=== PATIENT | female | born 1990 | race African-American/Black ===

== ENCOUNTER 2016-06-05 12:16 | Emergency (ER) | payer MEDICAID ==
--- NOTE | 2016-06-05 12:54 | ER Document Report ---
ED Medical Screen (RME) - General Stated Complaint: CHEST PAIN Mode of Arrival: Ambulatory Information source: Patient Notes: She presents emergency department with complaints of cough and hurts when she coughs. Also complains of back pain and dizziness. Patient reports she is to December 05 G43. Symptoms started 2 days ago. She reports she sometimes short of breath. Denies history of DVTs PEs. I have greeted and performed a rapid initial assessment of this patient. A comprehensive ED assessment and evaluation of the patient, analysis of test results and completion of the medical decision making process will be conducted by additional ED providers. TRAVEL OUTSIDE OF THE [place] IN LAST 30 DAYS: No Physical Exam - Vital signs Vitals: Temp Pulse Resp BP Pulse Ox 98.5 F 86 14 128/71 H 100 06/05/16 12:22 06/05/16 12:22 06/05/16 12:06/05/16 12:22 06/05/16 12:22 Course - Vital Signs Vital signs: Temp Pulse Resp BP Pulse Ox 98.5 F 86 14 128/71 H 100 06/05/16 12:22 06/05/16 12:22 06/05/16 12:22 06/05/16 12:22 06/05/16 12:22
--- NOTE | 2016-06-05 14:39 | ER Document Report ---
ED General - General Chief Complaint: Headache Stated Complaint: CHEST PAIN Time seen by provider: 14:34 Mode of Arrival: Ambulatory Information source: Patient Notes: 26-year-old female with a day history of headache which she localizes to the bilateral frontal region associated with nonproductive cough dizziness when she first wakes up nasal congestion and occasional blood in her nose and sharp chest and upper back pain with coughing or deep breathing. She denies history blood clots says she is with a due date is December 05. Ports no problems with at this point but has not seen [facility]ING SPECIALIST yet. She has not noted any abdominal pain vaginal bleeding or discharge dysuria pain numbness weakness or swelling to extremities. Physical Exam: General: Alert, appears well. HEENT: Normocephalic. Atraumatic. PERRLA. Extraocular movements intact. Discs sharp Tympanic members are canals clear Oropharynx clear. Tender to palpation over frontal sinuses bilaterally Neck: Supple. Non-tender. No JVD no adenopathy no nuchal rigidity Respiratory: No respiratory distress. Clear and equal breath sounds bilaterally. Cardiovascular: Regular rate and rhythm. Abdominal: Normal Inspection. Soft, non-tender. No distension. Normal Bowel Sounds. Back: Non-tender. No deformity or step off. Extremities: Moves all four extremities. Upper extremities: Normal inspection. Non-tender. Normal color. Normal ROM. Normal temperature. Lower extremities: Normal inspection. Non-tender. No edema. Normal color. Normal ROM. Normal temperature. No Homans sign bilaterally Neurological: Cranial nerves III-XII grossly intact bilaterally. Strength 5/5 throughout. Sensation intact to light touch. Normal cognition. AAOx4. Normal speech. Cerebellar function intact by finger to nose test bilaterally Psychological: Normal affect. Normal Mood. Skin: Warm. Dry. Normal color. TRAVEL OUTSIDE OF THE [place] IN LAST 30 DAYS: No - Related Data Allergies/Adverse Reactions: No Known Drug Allergies Allergy (Verified 06/05/16 12:59) Past Medical History - General Information source: Patient - Social History Smoking Status: Never Smoker Family History: Other - No family history of blood clots - Past Medical History Cardiac Medical History: Reports: None Review of Systems - Review of Systems Constitutional: denies: Chills, Fever EENT: Nose congestion, Nose discharge, Sinus pressure, Sinus discharge. denies : Ear pain Cardiovascular: See HPI Respiratory: See HPI Gastrointestinal: denies: Nausea, Vomiting Genitourinary: denies: Burning Female Genitourinary: Musculoskeletal: Back pain Hematologic/Lymphatic: denies: Swollen glands Neurological/Psychological: denies: Weakness, Numbness Physical Exam - Vital signs Vitals: Temp Pulse Resp BP Pulse Ox 98.5 F 86 14 128/71 H 100 06/05/16 12:22 06/05/16 12:22 06/05/16 12:22 06/05/16 12:22 06/05/16 12:22 Course - Re-evaluation Re-evalutation: 06/05/16 14:38 Patient has exam consistent with sinusitis. He has been taking Tylenol without improvement in her symptoms reports being limited another medication she can use her symptomatically treatments that she is . Given the duration of her symptoms and her be reasonable try antibiotics and also cancer that Benadryl and [id number] nasal spray would be safe to use also provided with the number for [facility] for outpatient follow-up - Vital Signs Vital signs: Temp Pulse Resp BP Pulse Ox 98.5 F 86 14 128/71 H 100 06/05/16 12:22 06/05/16 12:22 06/05/16 12:22 06/05/16 12:22 06/05/16 12:22 Discharge - Discharge Clinical Impression: Sinusitis Qualifiers: Sinusitis location: unspecified location Chronicity: acute Recurrence: not specified as recurrent Qualified Code(s): J01.90 - Acute sinusitis, unspecified Condition: Stable Disposition: HOME, SELF-CARE Additional Instructions: You are . care is best started as early in as possible. If you're unsure about continuing this , you should discuss this with your physician or with [facility] at [facility]. You should take only medications approved by your physician. Acetaminophen can safely be taken for minor pains. As a rule, medication for chronic conditions such as asthma or seizures can safely be continued. You should discuss with the physician every medicine you take. Any regular exercise program can be continued. Talk to your physician, however, before engaging in competitive or demanding sports. Alcohol, smoking, and "street drugs" are dangerous to your baby. Cocaine is especially dangerous. Don't use any illicit drugs! Sinusitis You have sinusitis, an infection of the sinus cavities of the face. The sinuses are air-filled chambers which open into the inside of the nose. Bacteria and pus fill a sinus, causing pain, drainage, and fever. Sinusitis is treated with antibiotics. Often, expectorants (to thin the sinus mucous) or decongestants (to reduce swelling) are prescribed as well. Healing requires seven to 10 days. Avoid chemical fumes, pollens, dusts, and smoke (especially cigarette smoke ). Keep the air humidified in your bedroom and work area and take plenty of liquids by mouth. This condition can be serious if the infection spreads. If your symptoms worsen, or if you develop severe headache, high fever, stiff neck, or a rash, you must call the doctor or return for re-evaluation. Prescriptions: Amoxicillin Trihydrate [Amoxil 500 mg Capsule] 500 mg PO TID #30 cap Referrals: REINALDO BURRELL MD [ACTIVE STAFF] - Follow up as needed
[2016-06-05 15:32] VITALS: BP 119/77
== END 2016-06-05 15:26 | disposition home or self-care (01) ==
LOC: ER 12:16
DX: O99.512 Diseases of the respiratory system complicating pregnancy, second trimester (principal); J01.90 Acute sinusitis, unspecified; J34.89 Other specified disorders of nose and nasal sinuses; O26.892 Other specified pregnancy related conditions, second trimester; R51 Headache; R05 Cough; R42 Dizziness and giddiness; R09.81 Nasal congestion; R07.89 Other chest pain; R06.02 Shortness of breath; O99.89 Other specified diseases and conditions complicating pregnancy, childbirth and the puerperium; M54.89 Other dorsalgia; Z3A.14 14 weeks gestation of pregnancy
CPT/HCPCS: 99283

== ENCOUNTER 2016-06-19 19:48 | Emergency (ER) | payer MEDICAID ==
[2016-06-19] MEDS ORDERED: IBUPROFEN 800 MG TABLET PO ONE (19:53)
--- NOTE | 2016-06-19 19:53 | ER Document Report ---
ED Medical Screen (RME) - General Stated Complaint: BACK/LEG PAIN Notes: onset: 2 days denies trauma, accident denies working with heavy lifting sudden onset, low back pain with right sciatica denies urinary/stool incontinence, saddle anesthesia. Patient able to bear weight and ambulate but with limp. for pain: APAP and heating pad, with relief but no longer then an hour I have greeted and performed a rapid initial assessment of this patient. A comprehensive ED assessment and evaluation of the patient, analysis of test results and completion of the medical decision making process will be conducted by additional ED providers. TRAVEL OUTSIDE OF THE [place] IN LAST 30 DAYS: No - Related Data Allergies/Adverse Reactions: No Known Drug Allergies Allergy (Verified 06/05/16 12:59)
--- NOTE | 2016-06-19 20:52 | ER Document Report ---
ED General - General Chief Complaint: Back Pain Stated Complaint: BACK/LEG PAIN Time seen by provider: 20:50 Notes: Patient is a 26-year-old female, at 15 weeks gestation by first trimester ultrasound, that comes emergency department for chief complaint of pain in her right mid to lower back that started 2 days ago. Patient states she awoke with the pain, states that she has not been able to get comfortable since began, states she is sleeping poorly and tossing and turning. She states that when she walks she feels pain in the area and occasionally she has pains in both the back and front of her right leg. She denies any swelling of the right leg, she states pain is intermittent and inconsistent. Patient denies any injuries, dysuria, fever, abdominal pain, vaginal bleeding or discharge. Patient is on vitamins, denies any other medications or medical history. TRAVEL OUTSIDE OF THE [place] IN LAST 30 DAYS: No - Related Data Allergies/Adverse Reactions: No Known Drug Allergies Allergy (Verified 06/05/16 12:59) Past Medical History - General Information source: Patient - Social History Smoking Status: Never Smoker Frequency of alcohol use: None Drug Abuse: None Lives with: Family Family History: Reviewed & Not Pertinent Patient has suicidal ideation: No Patient has homicidal ideation: No - Medical History Medical History: Negative Renal/ Medical History: Denies: Hx Peritoneal Dialysis Surgical Hx: Negative - Immunizations Immunizations up to date: Yes Hx Diphtheria, Pertussis, Tetanus Vaccination: Yes Review of Systems - Review of Systems Constitutional: No symptoms reported EENT: No symptoms reported Cardiovascular: No symptoms reported Respiratory: No symptoms reported Gastrointestinal: No symptoms reported Genitourinary: See HPI Female Genitourinary: See HPI Musculoskeletal: See HPI Skin: No symptoms reported Hematologic/Lymphatic: No symptoms reported Neurological/Psychological: No symptoms reported Physical Exam - Vital signs Vitals: Temp Pulse Resp BP Pulse Ox 98.1 F 110 H 18 131/72 H 99 06/19/16 19:52 06/19/16 19:52 06/19/16 19:52 06/19/16 19:52 06/19/16 19:52 Interpretation: Normal - General General appearance: Appears well, Alert In distress: None - HEENT Head: Normocephalic, Atraumatic Eyes: Normal Conjunctiva: Normal Extraocular movements intact: Yes Eyelashes: Normal Pupils: PERRL Mouth/Lips: Normal Mucous membranes: Normal Pharynx: Normal Neck: Normal - Respiratory Respiratory status: No respiratory distress Chest status: Nontender Breath sounds: Normal. No: Decreased air movement Chest palpation: Normal - Cardiovascular Rhythm: Regular. No: Tachycardia - no tachycardia on my exam Heart sounds: Normal auscultation, S1 appreciated, S2 appreciated Murmur: No - Abdominal Inspection: Normal Distension: No distension Bowel sounds: Normal Tenderness: Nontender Organomegaly: No organomegaly - Back Back: Tender - There is tenderness in the lumbar paraspinal muscles on the right side, no saddle anesthesia, no midline tenderness, no CVA tenderness, normal upper and lower extremity strength and range of motion, normal distal neurovascular exam - Extremities General upper extremity: Normal inspection, Nontender, Normal ROM, Normal strength General lower extremity: Normal inspection, Nontender, Normal ROM, Normal strength - Neurological Neuro grossly intact: Yes Cognition: Normal Orientation: AAOx4 Mirta Coma Scale Eye Opening: Spontaneous [place] Coma Scale Verbal: Oriented Mir[place] Coma Scale Motor: Obeys Commands Mirta Coma Scale Total: 15 Speech: Normal Cranial nerves: Normal Cerebellar coordination: Normal Motor strength normal: LUE, RUE, LLE, RLE Additional motor exam normals: Equal foxer Sensory: Normal - Psychological Associated symptoms: Normal affect, Normal mood - Skin Skin Temperature: Warm Skin Moisture: Dry Skin Color: Normal Course - Re-evaluation Re-evalutation: Patient smiling, well-appearing, alert, conversational, soft and benign abdomen , has tenderness over the right paralumbar muscles, patient with no other abnormalities on my examination. Urinalysis has more squamous epithelials and white blood cells, trace leukocyte esterase, no nitrites, no bacteria. Culture placed. Do not suspect urine as the source of her symptoms. Suspect musculoskeletal based on exam and benign symptoms. Patient not tachycardic on my exam, vitals rechecked and in normal ranges. Discussed with patient, patient will follow up with [facility], patient requesting something to help sleep and muscles, patient will be given a small amount of Flexeril (patient asking about category in , this is a B), discussed return precautions including fever, vomiting, worsening pain, abdominal pain, etc. Patient states understanding and agreement. - Vital Signs Vital signs: Temp Pulse Resp BP Pulse Ox 98.8 F 94 18 119/74 99 06/19/16 21:33 06/19/16 21:33 06/19/16 21:33 06/19/16 21:33 06/19/16 21:33 - Laboratory Laboratory results interpreted by me: 06/19/16 20:50 Urine Protein 30 H Ur Leukocyte Esterase TRACE H Discharge - Discharge Clinical Impression: Flank pain Condition: Stable Disposition: HOME, SELF-CARE Additional Instructions: Examination and symptoms suggesting muscular source of the problem, urine does not suggest an infection as the source of the problem. Apply heat to the area, do gentle stretches, take Tylenol, take the Flexeril if needed (category B). Follow-up with your provider for additional management. Return to emergency department for any concerning or worsening symptoms including fever, vomiting, severe pain, etc. Prescriptions: Cyclobenzaprine HCl [Flexeril 5 mg Tablet] 5 mg PO TID #15 tablet
[2016-06-19 21:12] LABS: APPEARANCE,URINE CLOUDY; BILIRUBIN,URINE NEGATIVE (NEGATIVE); GLUCOSE, URINE NEGATIVE (NEGATIVE); KETONES,URINE NEGATIVE (NEGATIVE); LEUKOCYTE ESTERASE,URINE TRACE (NEGATIVE); NITRITE,URINE NEGATIVE (NEGATIVE); PROTEIN,URINE 30 mg/dL (NEGATIVE); URINE SPECIFIC GRAVITY 1.014; UROBILINOGEN,URINE NEGATIVE mg/dL (<2.0)
[2016-06-19 21:34] VITALS: BP 119/74
== END 2016-06-19 21:33 | disposition home or self-care (01) ==
LOC: ER 19:48
DX: R10.9 Unspecified abdominal pain (principal); M54.9 Dorsalgia, unspecified; M79.606 Pain in leg, unspecified; Z3A.15 15 weeks gestation of pregnancy
CPT/HCPCS: 99283; 87086; 81001; J3490

== ENCOUNTER 2016-11-28 10:51 | Emergency (ER) | payer MEDICAID ==
[2016-11-28 10:57] VITALS: BP 124/80
[2016-11-28] MEDS ORDERED: PENICILLIN V POTASSIUM 500 MG TABLET PO ONE (11:44)
--- NOTE | 2016-11-28 11:45 | ER Document Report ---
HPI - HPI Patient complains to provider of: dental pain Onset: Other - 2 days Onset/Duration: Persistent Quality of pain: Achy Pain Level: 2 Context: Patient presents complaining of right lower jaw dental pain for the past 2 days. Patient denies any fever. Patient has been taking Tylenol without improvement of her pain symptoms. Patient is presently at 39 weeks . Associated Symptoms: Other - Dental pain. denies: Fever Exacerbated by: Denies Relieved by: Denies Similar symptoms previously: Yes Recently seen / treated by doctor: No - ROS ROS below otherwise negative: Yes - CONSTITUTIONAL Constitutional: DENIES: Fever - EENT Notes: Dental pain - GASTROINTESTINAL Gastrointestinal: DENIES: Nausea, Patient vomiting - REPRODUCTIVE Reproductive: REPORTS: : - MUSCULOSKELETAL Musculoskeletal: DENIES: Neck Pain - DERM Skin Color: Normal Skin Problems: None Past Medical History - General Information source: Patient - Social History Smoking Status: Never Smoker Frequency of alcohol use: None Drug Abuse: None Lives with: Family Family History: Reviewed & Not Pertinent - Medical History Medical History: Negative Renal/ Medical History: Denies: Hx Peritoneal Dialysis Surgical Hx: Negative - Immunizations Immunizations up to date: Yes Hx Diphtheria, Pertussis, Tetanus Vaccination: Yes Vertical Provider Document - CONSTITUTIONAL Agree With Documented VS: Yes Exam Limitations: No Limitations General Appearance: WD/WN, No Apparent Distress - INFECTION CONTROL TRAVEL OUTSIDE OF THE [place] IN LAST 30 DAYS: No - HEENT HEENT: Atraumatic, Normocephalic Mouth Diagram: 1 - dental caries, tenderness, no trismus - NECK Neck: Normal Inspection, Supple. negative: Lymphadenopathy-Left, Lymphadenopathy-Right - RESPIRATORY Respiratory: Breath Sounds Normal, No Respiratory Distress O2 Sat by Pulse Oximetry: 100 - CARDIOVASCULAR Cardiovascular: Regular Rate, Regular Rhythm - MUSCULOSKELETAL/EXTREMETIES Musculoskeletal/Extremeties: MAEW - NEURO Level of Consciousness: Awake, Alert, Appropriate - DERM Integumentary: Warm, Dry, No Rash Course - Vital Signs Vital signs: Temp Pulse Resp BP Pulse Ox 98.5 F 80 18 124/80 100 11/28/16 10:56 11/28/16 10:56 11/28/16 10:56 11/28/16 10:56 11/28/16 10:56 Discharge - Discharge Clinical Impression: Toothache Condition: Stable Disposition: HOME, SELF-CARE Instructions: Penicillin V K ([facility]), Toothache ([facility]), Acetaminophen, Dentist Additional Instructions: Return immediately for any new or worsening symptoms Followup with your primary care provider, call tomorrow to make a followup appointment Follow-up with a dental provider Prescriptions: Penicillin V Potassium [Penicillin Vk 500 mg Tablet] 500 mg PO BID #20 tablet Referrals: [facility] [Provider Group] - Follow up as needed
== END 2016-11-28 11:56 | disposition home or self-care (01) ==
LOC: ER 10:51
DX: K08.9 Disorder of teeth and supporting structures, unspecified (principal)
CPT/HCPCS: 99282; J3490

== ENCOUNTER 2016-12-10 19:17 | Outpatient (CLI) | payer MEDICAID ==
[2016-12-10 19:56] LABS: APPEARANCE,URINE CLEAR; BILIRUBIN,URINE NEGATIVE (NEGATIVE); GLUCOSE, URINE NEGATIVE (NEGATIVE); KETONES,URINE NEGATIVE (NEGATIVE); LEUKOCYTE ESTERASE,URINE NEGATIVE (NEGATIVE); NITRITE,URINE NEGATIVE (NEGATIVE); PROTEIN,URINE NEGATIVE (NEGATIVE); URINE SPECIFIC GRAVITY 1.024; UROBILINOGEN,URINE NEGATIVE mg/dL (<2.0)
[2016-12-10 20:09] LABS: URINE BARBITURATES SCREEN NEGATIVE; URINE METHADONE SCREEN NEGATIVE; URINE OPIATES LOW NEGATIVE; URINE PHENCYCLIDINE SCREEN NEGATIVE
[2016-12-10] MEDS ORDERED: HYDROXYZINE PAMOATE 50 MG CAPSULE ONE (21:24)
--- NOTE | 2016-12-10 21:33 | Non Stress Test Report ---
Non Stress Test Datetime Report Generated by CPN: 12/10/2016 21:32 DEMOGRAPHIC EGA NST: 40.5 INDICATION Indication for Study: Ordered by Provider MONITORING Monitor Explained: Monitor Explained; Test Explained; Patient Verbalized Understanding Time on Monitor: 12/10/2016 19:38 Time off Monitor: 12/10/2016 20:12 NST Duration: 34 NST INTERVENTIONS NST Interventions: None BABY A: [id number] BABY A Movement : Present Movement : Present Contraction Frequency : 4-9 FHR Baseline : 125 Accelerations : 15X15 Decelerations : None Variability : Moderate 6-25bpm NST Review: Meets Criteria for Reactive NST NST Review: Meets Criteria for Reactive NST NST Review and Verified By : Felipe Huertas RN NST Results: Reactive NST REPORT Report Trigger: Send Report
[2016-12-10] MEDS ORDERED: HYDROXYZINE PAMOATE 50 MG CAPSULE PO ONE (22:00)
== END 2016-12-10 21:31 | disposition home or self-care (01) ==
LOC: LC 19:17
PROVIDERS: ATTEND Specialist
PROC: 4A1HXCZ Monitoring of Products of Conception, Cardiac Rate, External Approach (ICD-10-PCS; principal; 2016-12-10)
DX: O47.1 False labor at or after 37 completed weeks of gestation (principal); O48.0 Post-term pregnancy; Z3A.40 40 weeks gestation of pregnancy
CPT/HCPCS: 59025; 81005; 80307; J3490

== ENCOUNTER 2016-12-11 00:33 | Inpatient (IN) | payer MEDICAID ==
[2016-12-11] MEDS ORDERED: PENICILLIN G POTASSIUM 5,000,000 UNIT in DEXTROSE 5%-WATER 100 ML IV ONE (02:38)
[2016-12-11] MEDS ORDERED: DEXTROSE 5%-LACTATED RINGERS 1,000 ML IV PRN (02:38)
[2016-12-11] MEDS ORDERED: MISOPROSTOL 0.2 MG TABLET ONE ×2 (02:48→08:40)
[2016-12-11] MEDS ORDERED: OXYTOCIN/NORMAL SALINE 20 UNIT/1,000 ML RTUINJ ONE ×3 (02:48→13:46)
[2016-12-11] MEDS ORDERED: PENICILLIN G-K 5 MILLION UNIT VIAL ONE ×3 (02:48→12:25)
[2016-12-11] MEDS ORDERED: LIDOCAINE 1% INJ-PF (10 MG/ML) 30 ML SDV ONE ×2 (02:48→11:56)
[2016-12-11 03:13] LABS: ABSOLUTE EOSINOPHILS # (AUTO) 0.1 10^3/uL (0.0-0.6); ABSOLUTE LYMPHOCYTES (AUTO) 1.7 10^3/uL (0.5-4.7); ABSOLUTE MONOCYTES (AUTO) 0.7 10^3/uL (0.1-1.4); ABSOLUTE NEUT (AUTO) 5.6 10^3/uL (1.7-8.2); BASOPHILS % (AUTO) 0.5 % (0-2); EOSINOPHILS % (AUTO) 0.7 % (0-6); HEMATOCRIT 29.9 % (36.0-47.0); HEMOGLOBIN 9.9 g/dL (12.0-15.5); HGB HCT DIFFERENCE -0.2; LYMPHOCYTES % (AUTO) 21.3 % (13-45); MEAN CORPUSCULAR HEMOGLOBIN 27.3 pg (27.0-33.4); MEAN CORPUSCULAR VOLUME 83 fl (80-97); MONOCYTES % (AUTO) 8.4 % (3-13); RED BLOOD COUNT 3.62 10^6/uL (3.72-5.28); SEGMENTED NEUTROPHILS % (AUTO) 69.1 % (42-78); WHITE BLOOD COUNT 8.1 10^3/uL (4.0-10.5)
[2016-12-11] MEDS ORDERED: RINGERS SOLUTION,LACTATED 1,000 ML IV PRN (03:21)
[2016-12-11] MEDS ORDERED: PENICILLIN G POTASSIUM 2,500,000 UNIT in DEXTROSE 5%-WATER 50 ML IV SCH (06:40)
--- NOTE | 2016-12-11 06:56 | L&D Progress Notes ---
PROGRESS NOTES Datetime Report Generated by CPN: 12/11/2016 06:55 PROGRESS NOTE Impression: Normal Progression of Labor Procedures: Artificial ROM Plan: Continue Present Management Informed Consent Obtained: Vaginal After Comment: plan epidural, cont gbs prophylaxis MEMBRANES Membranes: Ruptured Amniotic Fluid Color: Meconium, Heavy FETUS A FHR Category: Category I SIGNATURE SIGNATURE: [id number] SIGNATURE: [id number] Signature: with User ID: [email or web address]
[2016-12-11] MEDS ORDERED: EPHEDRINE SULFATE INJ 50 MG/1 ML AMPULE ONE (07:01)
[2016-12-11] MEDS ORDERED: FENTANYL/BUPIVACAINE/NS/PF 200 MCG/100 ML RTUINJ EPI ONE (07:01)
[2016-12-11] MEDS ORDERED: BUPIVACAINE HCL 0.25 % INJ/PF (2.5 MG/1 ML) 30 ML VIAL ONE (07:01)
[2016-12-11] MEDS ORDERED: ONDANSETRON HCL INJ/PF 4 MG/2 ML SDV ONE (08:11)
[2016-12-11] MEDS ORDERED: DEXAMETHASONE SOD PHOSPHATE INJ 4 MG/1 ML VIAL ONE (08:11)
[2016-12-11] MEDS ORDERED: SUCCINYLCHOLINE CHLORIDE INJ 200 MG/10 ML VIAL ONE (08:11)
--- NOTE | 2016-12-11 09:00 | L&D Progress Notes ---
PROGRESS NOTES Datetime Report Generated by CPN: 12/11/2016 09:00 PROGRESS NOTE Impression: Normal Progression of Labor Plan: Continue Present Management Informed Consent Obtained: Vaginal Delivery; Vaginal After ; Risks, Benefits and Alternatives Discussed Vital Signs : Reviewed Comment: 26 yo admitted for active labor EDC 12/06/16 EGA 40.6 c/s x1 with successful Positive GBS SROM 0641 heavy meconium prophylaxis x2 epidural in place pt on peanut ball start low dose pitocin anticipate FETUS A FHR - Baseline: 120 Monitoring: External US Variability: Moderate 6-25bpm Accelerations: 15X15 Decelerations: None FHR Category: Category I : 40.6 FETUS C SIGNATURE: [id number] Assignment: Reece Murphy DO Signature: with User ID: [email or web address] : with User ID: [email or web address]
[2016-12-11] MEDS ORDERED: PENICILLIN G-K 5 MILLION UNIT VIAL IV SCH (10:00)
[2016-12-11] MEDS ORDERED: CEFAZOLIN 2 GM/D5W RTU 2 GM/50 ML RTUPB IV ONE (13:30)
[2016-12-11] MEDS ORDERED: CITRIC ACID/SODIUM CITRATE ORAL SOLN 15 ML UDCUP ONE (13:30)
[2016-12-11] MEDS ORDERED: LIDOCAINE 2% INJ-PF (20 MG/ML) 10 ML AMPUL ONE (13:34)
[2016-12-11] MEDS ORDERED: FENTANYL CITRATE INJ/PF 100 MCG/2 ML AMPUL ONE (13:47)
[2016-12-11] MEDS ORDERED: MORPHINE SULFATE 10 MG/ML INJ ONE (13:47)
[2016-12-11] MEDS ORDERED: PROPOFOL INJ 200 MG/20 ML VIAL IV ONE (14:06)
[2016-12-11] MEDS ORDERED: OXYTOCIN/NORMAL SALINE 20 UNIT/1,000 ML RTUINJ INJ PRN (15:34)
[2016-12-11] MEDS ORDERED: OXYCODONE-ACETAMINOPHEN 5-325 MG TABLET PO PRN (16:00)
[2016-12-11] MEDS ORDERED: PROMETHAZINE HCL INJ 25 MG/1 ML VIAL IM PRN (16:00)
[2016-12-11] MEDS ORDERED: DIPH/PERTUSS(ACELL)/TETANUS VAC/PF 0.5 ML SYR (>=10YO) IM PRN (16:00)
[2016-12-11] MEDS ORDERED: HYDROMORPHONE HCL INJ/PF 2 MG/ML AMPULE IV PRN (16:00)
[2016-12-11] MEDS ORDERED: RINGERS SOLUTION,LACTATED 1,000 ML IV SCH (16:00)
[2016-12-11] MEDS ORDERED: ACETAMINOPHEN 325 MG TABLET PO PRN (16:00)
[2016-12-11] MEDS ORDERED: MEASLES,MUMPS&RUBELLA VACC/PF 0.5 ML VIAL SUBCUT PRN (16:00)
--- NOTE | 2016-12-11 16:20 | Admission Physical ---
Datetime Report Generated by CPN: 12/11/2016 16:20 CURRENT ADMISSION Hx Assessment: The History has been Reviewed and is Current Chief Complaint: Uterine Contractions Admit Plan: Initiate Labor Protocol; Initiate Protocol ALLERGIES Medication Allergies: No Medication Allergies: No Known Drug Allergies (12/11/2016) Medication Allergies: No Known Drug Allergies (11/28/2016) Latex: No Latex Allergies Food Allergies: N/A Environmental Allergies: N/A OBSTETRICAL HISTORY EDC: 12/05/2016 00:00 : 5 Para: 3 Term: 3 : 0 SAB: 0 IAB: 1 Ectopic: 0 Livin Cesareans: 1 VBACs: 2 Multiple Births: 0 Gestational Diabetes: No Rh Sensitization: No Incompetent Cervix: No KINSEY: No Infertility: No ART Treatment: No Uterine Anomaly: No IUGR: No Hx Previous C/S: Yes Macrosomia: No Hx Loss/Stillborn: No PIH: No Hx : No Placenta Previa/Abruption: No Depression/PP Depression: No PTL/PROM: No Post Hemorrhage: No Current Procedures: Ultrasound Obstetrical History Comments: G1--40w girl [id number] 11/2007 G2--37w C/S for breech girl 5lb4oz 05/2010 G3--40w girl 6lb4oz 12/2011 G4--IAB 2013 G5--current SEE RECORDS Alcohol: No Marijuana : No Cocaine: No Other Illicit Drugs: No Cigarettes: Never Smoker. 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 Heart Disease: No Hosp/Surgery: Yes Autoimmune Disorder: No Anesthetic Complications: No Kidney Disease: Yes Abnormal Pap Smear: No Neuro/Epilepsy: No Psychiatric Disorders: No Other Medical Diseases: No Hepatitis/Liver Disease: No Significant Family History: No Varicosities/Phlebitis: No Trauma/Violence : No Thyroid Dysfunction: No Medical History Comments: hx UTI wisdom teeth 2016 C/S 2011--spinal INFECTIOUS HISTORY Gonorrhea: No Genital Herpes: No Chlamydia: No Tuberculosis: No Syphilis: No Hepatitis: No HIV/AIDS Exposure: No Rash or Viral Illness: No HPV: No PHYSICAL EXAM General: Normal HEENT: Normal Neurologic: Normal Thyroid: Normal Heart: Normal Lungs: Normal Breast: Normal Back: Normal Abdomen: Normal Genitourinary Exam: Normal Extremities: Normal DTRs: Normal Pelvic Type: Adequate Physical Exam Comments: gbs+ efw 7 1/2 pounds MEMBRANES Membranes: Ruptured Amniotic Fluid Color: Meconium, Heavy FETUS A EGA: 40.6 Monitoring: External US FHR Category: Category I Admit Comment: IUP at 40.6 wks desires shira for (has had successful in past). If c/s needed, desires btl. Start gbs prophylaxis and epidural. PLANS FOR LABOR AND DELIVERY Labor and Delivery: None Pain Management: Epidural Feeding Preference: Both Benefit of Breast Feed Discussed: Yes Circumcision: Yes INFORMED CONSENT Informed Consent Obtained: Vaginal Delivery; Vaginal After ; Risks, Benefits and Alternatives Discussed Informed Consent Obtained: Vaginal After Signature: with User ID: [email or web address]
[2016-12-11] MEDS: DOCUSATE SODIUM 100 MG CAPSULE PO SCH (17:58)
[2016-12-11] MEDS ORDERED: IBUPROFEN 800 MG TABLET PO SCH (18:00)
[2016-12-11] MEDS: KETOROLAC TROMETHAMINE INJ/PF 30 MG/1 ML SDV IV SCH (22:54)
[2016-12-12] MEDS: OXYCODONE-ACETAMINOPHEN 5-325 MG TABLET PO PRN ×3 (04:50→17:03)
[2016-12-12 05:38] LABS: HEMATOCRIT 25.5 % (36.0-47.0); HEMOGLOBIN 8.1 g/dL (12.0-15.5); HGB HCT DIFFERENCE -1.2; MEAN CORPUSCULAR HGB CONC 31.9 g/dL (32.0-36.0); MEAN CORPUSCULAR VOLUME 85 fl (80-97); RED BLOOD COUNT 3.01 10^6/uL (3.72-5.28); RED CELL DISTRIBUTION WIDTH 17.2 % (11.5-14.0); WHITE BLOOD COUNT 12.7 10^3/uL (4.0-10.5)
[2016-12-12] MEDS: KETOROLAC TROMETHAMINE INJ/PF 30 MG/1 ML SDV IV SCH ×2 (06:51→13:19)
[2016-12-12] MEDS: PRENATAL VITAMIN W-O CA NO5/FE FUMARATE/FA CAPSULE PO SCH (09:52)
[2016-12-12] MEDS: DOCUSATE SODIUM 100 MG CAPSULE PO SCH ×2 (09:52→17:04)
--- NOTE | 2016-12-12 10:01 | PDOC PROGRESS REPORT ---
Subjective-OB Subjective: Post Delivery Day: 26 year old. Denies any needs at this time Doing well, no c/o, pain under control. holding baby, breast feeding, Physical Exam (OB) Vital Signs: Temp Pulse Resp BP Pulse Ox 99.1 F 96 16 115/71 100 12/12/16 08:36 12/12/16 08:36 12/12/16 08:36 12/12/16 08:36 12/12/16 08:36 Intake & Output 12/11/16 12/12/16 12/13/16 06:59 06:59 06:59 Intake Total 675 Output Total 1300 400 Balance -625 -400 Weight 92.55 kg - Dressing Removed: Yes Incision: Dressing - Lochia Lochia Amount: Small 10-25 ml Lochia Color: Rubra/Red - Abdomen Description: Soft, Round Hernia Present: No Fundal Description: Firm, Midline Fundal Height: u/u - u/2 Objective-Diagnostic Laboratory: 12/12/16 05:19 12/12/16 05:19 WBC 12.7 H RBC 3.01 L Hgb 8.1 L Hct 25.5 L MCV 85 MCH 27.0 MCHC 31.9 L RDW 17.2 H Plt Count 169 Assessment and Plan(PN) - Assessment and Plan (1) GBS (group B Streptococcus carrier), +RV culture, currently Is this a current diagnosis for this admission?: Yes (2) Delivery by emergency caesarean section Is this a current diagnosis for this admission?: Yes (3) Anemia Qualifiers: Anemia type: iron deficiency Is this a current diagnosis for this admission?: Yes - Time Spent with Patient Time with patient: Less than 15 minutes Medications reviewed and adjusted accordingly: Yes - Disposition Anticipated Discharge: Home Within: within 48 hours
[2016-12-12] MEDS: SIMETHICONE 80 MG TAB.CHEW PO PRN ×2 (14:30→20:50)
[2016-12-12] MEDS: IBUPROFEN 800 MG TABLET PO SCH (21:59)
[2016-12-13] MEDS: OXYCODONE-ACETAMINOPHEN 5-325 MG TABLET PO PRN (01:47)
[2016-12-13] MEDS: IBUPROFEN 800 MG TABLET PO SCH ×2 (07:00→08:07)
[2016-12-13] MEDS: SIMETHICONE 80 MG TAB.CHEW PO PRN (08:10)
--- NOTE | 2016-12-13 09:34 | PDOC PROGRESS REPORT ---
Subjective-OB Subjective: Post Delivery Day: 26 year old. Denies any needs at this time Doing well, ready to go home, ambulating, voiding, holding baby, passing gas, pain under control, states she feels safe at home Physical Exam (OB) Vital Signs: Temp Pulse Resp BP Pulse Ox 98.2 F 103 H 16 141/86 H 100 12/13/16 08:41 12/13/16 08:41 12/13/16 08:41 12/13/16 08:41 12/13/16 08:41 Intake & Output 12/12/16 12/13/16 12/14/16 06:59 06:59 06:59 Intake Total 675 600 Output Total 1300 400 Balance -625 200 - Dressing Removed: No Incision: Well Approximated Closure Type: op site - Lochia Lochia Amount: Scant < 10 ml Lochia Color: Rubra/Red - Abdomen Description: Tender, Soft, Round Hernia Present: No Fundal Description: Firm, Midline Fundal Height: u/u - u/2 Objective-Diagnostic Laboratory: 12/12/16 05:19 Assessment and Plan(PN) - Assessment and Plan (1) GBS (group B Streptococcus carrier), +RV culture, currently Is this a current diagnosis for this admission?: Yes (2) Delivery by emergency caesarean section Is this a current diagnosis for this admission?: Yes (3) Anemia Qualifiers: Anemia type: iron deficiency Is this a current diagnosis for this admission?: Yes - Time Spent with Patient Time with patient: Less than 15 minutes Medications reviewed and adjusted accordingly: Yes - Disposition Anticipated Discharge: Home Within: Other - home today
[2016-12-13] MEDS: DOCUSATE SODIUM 100 MG CAPSULE PO SCH (09:35)
[2016-12-13] MEDS: PRENATAL VITAMIN W-O CA NO5/FE FUMARATE/FA CAPSULE PO SCH (09:35)
--- NOTE | 2016-12-13 09:44 | PDOC DISCHARGE SUMMARY ---
Final Diagnosis Discharge Date: 12/13/16 - Final Diagnosis (1) GBS (group B Streptococcus carrier), +RV culture, currently Is this a current diagnosis for this admission?: Yes (2) Delivery by emergency caesarean section Is this a current diagnosis for this admission?: Yes (3) Anemia Is this a current diagnosis for this admission?: Yes Discharge Data - Discharge Medication Home Medications: Pnv No.122/Iron/Folic Acid [ Multi Tablet] 1 tab PO DAILY 12/10/16 Ibuprofen [Motrin 800 mg Tablet] 800 mg PO Q6A #60 tablet 12/13/16 Oxycodone HCl/Acetaminophen [Percocet 5-325 mg Tablet] 1 tab PO Q4HP PRN #30 tablet 12/13/16 Gestational Age: 40.6 Reason(s) for Admission: Onset of Labor Admission Note: augmentationmod mec Procedures: NST, Ultrasound Intrapartum Procedure(s): : Low Cervical, Transverse Intrapartum Procedure Note: caput, multiple lates, meconium - Jeannette Data Baby 1 Male at 1 minute: 3 at 5 minutes: 9 Weight: 4.167 kg Home with Mother: Yes Complications: No - Diagnosis Test Laboratory: Temp Pulse Resp BP Pulse Ox 98.2 F 103 H 16 141/86 H 100 12/13/16 08:41 12/13/16 08:41 12/13/16 08:41 12/13/16 08:41 12/13/16 08:41 12/11/16 12/12/16 02:58 05:19 RBC 3.62 L 3.01 L Hgb 9.9 L 8.1 L Hct 29.9 L 25.5 L - Discharge information/Instructions Discharge Activity: Activity As Tolerated, Balance Activity w/Rest, No Lifting Over 10 Pounds, No Lifting/Push/Pulling Discharge Diet: As Tolerated, Regular Disposition: HOME, SELF-CARE Follow up with: [facility] in: 1, Weeks
[2016-12-13 11:37] VITALS: BP 134/86
--- NOTE | 2016-12-15 12:04 | Delivery Summary ---
Del Sum A-C Datetime Report Generated by CPN: 12/15/2016 12:04 DELIVERY PERSONNEL DELIVERY PERSONNEL: [phone];[id number] DELIVERY PERSONNEL: [phone] DELIVERY PERSONNEL: [id number] DELIVERY PERSONNEL: [phone] Delivery Doctor:: Reece Murphy DO Anesthesiologist:: Sridhar Carbone MD BODY WORKER:: Nagi Osuna CRNA Labor and Delivery Nurse:: SAMRA Sherman Labor and Delivery Nurse:: Fred Olson RN Steak Sauce Maker:: Ilene Kong RN Neonatal Nurse Practitioner:: BRYCE Zhang Nursery Nurse:: Zaira Dumont RN Night Order Selector/MINING PROFESSIONALS: [facility] Night Order Selector/MINING PROFESSIONALS: Lory Mace TASSEL SNIPPER MATERNAL INFORMATION Delivery Anesthesia: Epidural; General Estimated Blood Loss (ml): 600 Maternal Complications: None LABOR SUMMARY EDC: 12/05/2016 00:00 No. Babies in Womb: 1 Attempted: Yes Labor Anesthesia: Epidural LABOR INFORMATION Reason for Induction: Not Applicable Onset of Labor: 12/10/2016 23:30 Complete Dilatation: 12/11/2016 12:29 Oxytocin: Augmentation Group B Beta Strep: positive (Annotations: Data stored by [facility] on behalf of user) Antibiotics Time of Last Dose: 0310/0648/1219 Name of Antibiotic Given: PCN Steroids Given: None Reason Steroids Not Administered: Not Applicable MEMBRANES Membranes Rupture Method: Artificial Rupture of Membranes: 12/11/2016 06:41 Length of Rupture (hr): 7.05 Amniotic Fluid Color: Moderate Meconium Amniotic Fluid Amount: Moderate Amniotic Fluid Odor: Normal STAGES OF LABOR Stage 1 hr: 12 Stage 1 min: 59 Stage 2 hr: 1 Stage 2 min: 15 Stage 3 hr: 0 Stage 3 min: 2 Total Time in Labor hr: 14 Total Time in Labor min: 16 VAGINAL DELIVERY Episiotomy: None Laceration Extension: N/A Laceration Type: None Laceration Repair: Not Applicable Sponge Count Correct: N/A Sharps Count Correct: N/A CSECTION DELIVERY Primary Indication: Nonreassuring Status Secondary Indication: Suspected Uterine Rupture CSection Urgency: Emergency CSection Incidence: Repeat Labor: Labor Elective: N/A CSection Incision: Lower Uterine Transverse Sterilization Procedure: Ring and Clip Uterine Closure: Double-layer closure BABY A INFORMATION Infant Delivery Date/Time: 12/11/2016 13:44 Method of Delivery: Born in Route : No : Failed Forceps: N/A Vacuum Extraction: N/A Shoulder Dystocia : No PRESENTATION/POSITION BABY A Presentation: Cephalic Cephalic Presentation: Vertex Vertex Position: n/a Breech Presentation: N/A PLACENTA INFORMATION BABY A Placenta Delivery Time : 12/11/2016 13:46 Placenta Method of Delivery: Manual Removal Placenta Status: Delivered SCORES BABY A Heart Rate 1 min: >100 bpm Resp Effort 1 min: Absent Reflex Irritability 1 min: Grimace Muscle Tone 1 min: Flaccid Color 1 min: Blue/Pale Resuscitation Effort 1 min: Tactile Stimulation; PPV/NCPAP SCORE 1 MIN: 3 Heart Rate 5 min: >100 bpm Resp Effort 5 min: Good Cry Reflex Irritability 5 min: Cough or Sneeze or Pulls Away Muscle Tone 5 min: Active Motion Color 5 min: Body [place], Extremities Blue Resuscitation Effort 5 min: Oxygen; PPV/NCPAP SCORE 5 MIN: 9 INFANT INFORMATION BABY A Gestational Age at Delivery: 40.6 Gestational Status: Full Term- 39- 40.6 Weeks Infant Outcome : Liveborn Infant Condition : Stable Infant Condition : Stable Sex: Male IDENTIFICATION BABY A Infant Verification Date/Time: 12/11/2016 13:50 ID Band Number: [id number] Mother's Name Verified: Yes RN Verifying Infant: D Bellavance RNC/R Pan RN WEIGHT/LENGTH BABY A Birthweight (gm): 4130 Weight (lb): 9 Infant Weight (oz): 2 Length (in): 21.25 Length (cm): 53.98 CORD INFORMATION BABY A No. Cord Vessels: 3 Nuchal Cord : N/A Cord Blood Taken: Yes-For Storage (Mom's Blood type +) Suction: Mouth; Nose ASSESSMENT BABY A Complications: Decreased Variability; Multiple Late Decels; Meconium Physical Findings at Delivery: Caput Succedaneum; Molding of the Head; [place] Spots Skin to Skin: No Skin to Skin Time (min): mom under general not ready to breast at one hour Cardio Clinician/ALS Called : Yes Infant Care By: Gerson Dumont Transferred To: [facility] BABY B INFORMATION : N/A SIGNATURES Signature: with User ID: [email or web address]
== END 2016-12-13 14:00 | disposition home or self-care (01) | DRG 766 ==
LOC: LC 00:33 → LR 02:38 → 2S 16:17
PROVIDERS: ADMIT Specialist; ATTEND Specialist
PROC: 10D00Z1 Extraction of Products of Conception, Low, Open Approach (ICD-10-PCS; principal; 2016-12-11)
PROC: 0UL70CZ Occlusion of Bilateral Fallopian Tubes with Extraluminal Device, Open Approach (ICD-10-PCS; 2016-12-11)
PROC: 10907ZC Drainage of Amniotic Fluid, Therapeutic from Products of Conception, Via Natural or Artificial Opening (ICD-10-PCS; 2016-12-11)
DX: O71.1 Rupture of uterus during labor (principal); O76 Abnormality in fetal heart rate and rhythm complicating labor and delivery; Z3A.40 40 weeks gestation of pregnancy; Z37.0 Single live birth; O99.824 Streptococcus B carrier state complicating childbirth; O99.02 Anemia complicating childbirth; D64.9 Anemia, unspecified
CPT/HCPCS: 1961; 36415; 85025; 85027; 86592; 86850; 86900; 86901; 88307; 94760; 94799; J0330; J0690; J1100; J1170; J1885; J2270; J2405; J2540; J2590; J2704; J3010; J3490

== ENCOUNTER 2017-01-05 21:48 | Emergency (ER) | payer MEDICAID ==
[2017-01-06] MEDS ORDERED: IBUPROFEN 800 MG TABLET PO ONE (00:10)
[2017-01-06] MEDS ORDERED: CEPHALEXIN 500 MG CAPSULE PO ONE (00:10)
--- NOTE | 2017-01-06 00:27 | ER Document Report ---
HPI - HPI Patient complains to provider of: post op wound complication Onset: Other - 3 days Onset/Duration: Persistent Quality of pain: Achy Pain Level: 5 Context: Patient is status post on 12/11/2016. Patient states that her wound opened up and started to ooze drainage 3 days ago. Patient states that she did follow-up initially 1 week after her . Patient denies any fever, nausea, vomiting, diarrhea or urinary symptoms. Patient does complain of tenderness to her incision along the right side. Patient has an appointment tomorrow with the [facility] doctor. Associated Symptoms: Other - abd tenderness, wound problem. denies: Fever Exacerbated by: Denies Relieved by: Denies Similar symptoms previously: No Recently seen / treated by doctor: No - ROS ROS below otherwise negative: Yes Systems Reviewed and Negative: Yes All other systems reviewed and negative - CONSTITUTIONAL Constitutional: DENIES: Fever, Chills - GASTROINTESTINAL Gastrointestinal: REPORTS: Abdominal Pain. DENIES: Nausea, Patient vomiting - MUSCULOSKELETAL Musculoskeletal: DENIES: Back Pain - DERM Skin Color: Normal Notes: wound dehiscence Past Medical History - General Information source: Patient - Social History Smoking Status: Never Smoker Frequency of alcohol use: None Drug Abuse: None Occupation: none Lives with: Family Family History: Reviewed & Not Pertinent Patient has suicidal ideation: No Patient has homicidal ideation: No - Medical History Medical History: Negative Renal/ Medical History: Denies: Hx Peritoneal Dialysis Past Surgical History: Reports: Hx Section - Immunizations Immunizations up to date: Yes Hx Diphtheria, Pertussis, Tetanus Vaccination: Yes Vertical Provider Document - CONSTITUTIONAL Agree With Documented VS: Yes General Appearance: WD/WN, No Apparent Distress - INFECTION CONTROL TRAVEL OUTSIDE OF THE [place] IN LAST 30 DAYS: No - HEENT HEENT: Atraumatic, Normocephalic - NECK Neck: Normal Inspection - RESPIRATORY Respiratory: Breath Sounds Normal, No Respiratory Distress O2 Sat by Pulse Oximetry: 99 - CARDIOVASCULAR Cardiovascular: Regular Rate, Regular Rhythm, No Murmur - GI/ABDOMEN Gastrointestinal: Abdomen Soft, Abdomen Tender - Patient with abdominal tenderness along right lateral half of her abdominal incision. Patient with multiple white firm soledad visible to right half of her incision - BACK Back: Normal Inspection - MUSCULOSKELETAL/EXTREMETIES Musculoskeletal/Extremeties: SARAH WORKMAN - NEURO Level of Consciousness: Awake, Alert, Appropriate Motor/Sensory: No Motor Deficit - DERM Integumentary: Warm, Dry Adult Front & Back Diagram: 1 - c section, normal skin color and temperature surrounding abdominal incision. Patient with white soledad visible to right lateral aspect of her incision. Small amount of drainage noted to dressing Course - Re-evaluation Re-evalutation: 01/06/17 00:[address] Jennings regarding patient presentation. Advises having patient follow up in the office on Thursday to see him for follow-up. Recommends placing patient on Keflex. - Vital Signs Vital signs: Temp Pulse Resp BP Pulse Ox 98.5 F 58 L 16 141/87 H 99 01/05/17 22:09 01/05/17 22:09 01/05/17 22:09 01/05/17 22:09 01/05/17 22:09 Discharge - Discharge Clinical Impression: Wound dehiscence Abdominal pain Qualifiers: Abdominal location: unspecified location Qualified Code(s): R10.9 - Unspecified abdominal pain Condition: Stable Disposition: HOME, SELF-CARE Instructions: Abdominal Pain ([facility]), Cephalexin ([facility]), Use of [id number] Ibuprofen ([facility]) Additional Instructions: Return immediately for any new or worsening symptoms Followup with your primary care provider, call tomorrow to make a followup appointment Follow-up with Dr. Jennings on Thursday for recheck Wound culture is pending, we will call if you need any different treatment Prescriptions: Cephalexin Monohydrate [Keflex 500 mg Capsule] 500 mg PO Q6H 5 Days capsule Ibuprofen [Motrin 600 Mg Tablet] 600 mg PO Q6H PRN #20 tablet PRN Reason: for pain Referrals: SALENA MANE DO [GUTIERREZ JEFFRIES] - 01/07/17
[2017-01-06 01:40] VITALS: BP 137/96
== END 2017-01-06 01:07 | disposition home or self-care (01) ==
LOC: ER 21:48
DX: O90.0 Disruption of cesarean delivery wound (principal); O90.89 Other complications of the puerperium, not elsewhere classified; R10.9 Unspecified abdominal pain
CPT/HCPCS: 99283; 87070; 87205; 87075; 87077; J3490